=== PATIENT | male | born 1975 | race American Indian/Alaskan Native ===

== ENCOUNTER 2018-06-10 12:29 | Emergency (ER) | payer SELFPAY ==
[2018-06-10 13:16] LABS: Basophils % (Auto) 0.3 % (0.0-1.8); Eosinophils # (Auto) 0.1 K/mm3 (0.0-0.4); Eosinophils % (Auto) 0.6 % (0.0-4.3); Hemoglobin 14.2 gm/dl (11.8-15.2); Lymphocytes # (Auto) 1.1 K/mm3 (1.2-5.4); Lymphocytes % (Auto) 9.5 % (13.4-35.0); Mean Corpuscular HGB Conc 34 % (32-34); Mean Corpuscular Hemoglobin 30 pg (28-32); Mean Corpuscular Volume 88 fl (84-94); Monocytes # (Auto) 0.5 K/mm3 (0.0-0.8); Monocytes % (Auto) 4.2 % (0.0-7.3); Platelet Count 243 K/mm3 (140-440); Red Blood Count 4.79 M/mm3 (3.65-5.03); Red Cell Distribution Width 14.9 % (13.2-15.2)
--- NOTE | 2018-06-10 13:27 | Emergency Department Report ---
ED Psych HPI - General Chief Complaint: Psych Stated Complaint: MENTAL HEALTH/SUICIDAL Time Seen by Provider: 06/10/18 13:09 Source: patient Mode of arrival: Ambulatory - History of Present Illness Initial Comments: Patient is 42 years old male with history of hypertension and history of bipolar disorder. Patient presented to the ER requesting detoxification from crack cocaine. Patient friend who brought the patient stated that he spent the whole might smoking crack cocaine. Patient stated that he had thoughts of killing himself but he does not have a plan. When asked about auditory and visual hallucination patient stated that last time he had symptoms like that was one year ago. Patient denied any homicidal ideation. MD Complaint: suicidal ideation, feels depressed Associated Psychiatric Symptoms: suicidal ideation If Self Harm: admits thoughts of - Related Data Previous Rx's Medication Instructions Recorded Last Taken Type Permethrin 5% [Acticin 5% CREAM] 60 gm TP ONCE #1 tube 10/16/13 Unknown Rx Allergies Allergy/AdvReac Type Severity Reaction Status Date / Time No Known Allergies Allergy Verified 10/16/13 20:07 ED Review of Systems ROS: Stated complaint: MENTAL HEALTH/SUICIDAL Other details as noted in HPI Comment: All other systems reviewed and negative Constitutional: denies: chills, fever Respiratory: denies: cough, orthopnea, shortness of breath, SOB with exertion, SOB at rest, wheezing Cardiovascular: denies: chest pain, palpitations, dyspnea on exertion Gastrointestinal: denies: abdominal pain, nausea, vomiting Musculoskeletal: denies: back pain Neurological: denies: headache, weakness, numbness, paresthesias, confusion, abnormal gait Psychiatric: depression, suicidal thoughts ED Past Medical Hx - Past Medical History Hx Hypertension: Yes - Surgical History Past Surgical History?: No - Social History Smoking Status: Current Every Day Smoker Substance Use Type: Cocaine, Marijuana - Medications Home Medications: Home Medications Medication Instructions Recorded Confirmed Last Taken Type Permethrin 5% [Acticin 5% CREAM] 60 gm TP ONCE #1 tube 10/16/13 Unknown Rx ED Physical Exam - General Limitations: No Limitations General appearance: alert, in no apparent distress, other (depressed) - Head Head exam: Present: atraumatic - Eye Eye exam: Present: normal appearance, PERRL - ENT ENT exam: Present: normal exam, normal orophraynx, mucous membranes moist - Neck Neck exam: Present: normal inspection, full ROM. Absent: tenderness, meningismus, lymphadenopathy, thyromegaly - Respiratory Respiratory exam: Present: normal lung sounds bilaterally - Cardiovascular Cardiovascular Exam: Present: tachycardia, normal heart sounds - GI/Abdominal GI/Abdominal exam: Present: soft, normal bowel sounds. Absent: distended, tenderness, guarding, rebound, rigid, organomegaly, pulsatile mass, hernia - Extremities Exam Extremities exam: Present: normal inspection, full ROM, normal capillary refill. Absent: pedal edema, calf tenderness - Back Exam Back exam: Present: normal inspection, full ROM. Absent: tenderness, CVA tenderness (R), CVA tenderness (L), muscle spasm, paraspinal tenderness, vertebral tenderness - Neurological Exam Neurological exam: Present: alert, oriented X3, CN II-XII intact, normal gait, reflexes normal - Psychiatric Psychiatric exam: Present: depressed, suicidal ideation. Absent: agitated, anxious, flat affect, manic, homicidal ideation - Skin Skin exam: Present: warm, intact, normal color ED Course Vital Signs 06/10/18 12:42 Temperature 98.5 F Pulse Rate 133 H Respiratory 18 Rate Blood Pressure 122/82 O2 Sat by Pulse 98 Oximetry ED Medical Decision Making - Lab Data Result diagrams: 06/10/18 12:55 Critical care attestation.: If time is entered above; I have spent that time in minutes in the direct care of this critically ill patient, excluding procedure time. ED Disposition Clinical Impression: Substance abuse, Suicidal ideation Disposition: DC/TX-65 PSY HOSP/PSY UNIT Is pt being admited?: No Condition: Stable Referrals: PRIMARY CARE [Primary Care Provider] - 3-5 Days
[2018-06-10 13:34] LABS: BUN/Creatinine Ratio 8; Blood Urea Nitrogen 8 mg/dL (9-20); Calcium 9.3 mg/dL (8.4-10.2); Hemolysis Index 6
[2018-06-10 23:48] LABS: Bilirubin,Urine NEG (Negative); Blood,Urine NEG (Negative); Color,Urine Yellow (Yellow); Mucus,Urine FEW /HPF
[2018-06-10 23:51] LABS: Amphetamine Screen,Urine PRESUMPTIVE NEGATIVE; Benzodiazepines Screen,Urine PRESUMPTIVE NEGATIVE; Opiate Screen,Urine PRESUMPTIVE NEGATIVE
[2018-06-11 00:49] LABS: Cannabinoid Screen,Urine PRESUMPTIVE POSITIVE; Cocaine Screen,Urine PRESUMPTIVE POSITIVE; Methadone Screen,Urine PRESUMPTIVE POSITIVE
--- NOTE | 2018-06-11 18:33 | Consultation ---
History of Present Illness - Reason for Consult Consult date: 06/11/18 Reason for consult: psychiatric evaluation - Chief Complaint Chief complaint: "I want to go back to [place]." - History of Present Psychiatric Illness Mr. Bridgette Reza is a 42 years old AA male from [place] with history of hypertension and history of substance induced mood disorder vs. bipolar d/o. Patient presented to the ER requesting detoxification from crack cocaine. According to the ER record, a friend who brought the patient stated that he spent the whole might smoking crack cocaine. Patient stated that he had thoughts of killing himself but he does not have a plan. He denies suicidal ideation today. Patient denied any homicidal ideation. He denies psychotic symptoms. He is irritable and states he needs to leave. He says he has no one in [place]. His kicked him out. She has his younger 2 children, ages 6 and 9. He plans to return to [place] to stay with his mother. He received social security disability. He has a court date 07/05/2018 and is concerned about not making it to the court date. According to the record: [Pt reports first using cocaine in powder form at age 16. He began abusing crack cocaine via smoking at age 29 and has since been abusing $100 worth every other week with last use 06/10/18. Pt denies daily use. He denies current and hx of withdrawal sxs. Pt reports first smoking marijuana at age 14. He reports smoking about 7 grams worth everyday with last use being 06/09/18.] He reports the information is the same. He usually takes seroquel 800mg hs. He denies being diagnosed with bipolar. He states he has a therapist and psychiatric provider. Medications and Allergies Allergies Allergy/AdvReac Type Severity Reaction Status Date / Time No Known Allergies Allergy Verified 10/16/13 20:07 Home Medications Medication Instructions Recorded Confirmed Last Taken Type Permethrin 5% [Acticin 5% CREAM] 60 gm TP ONCE #1 tube 10/16/13 1 Day Ago Rx ~06/09/18 400 mg Amlodipine Besylate [Norvasc] 5 mg PO 06/10/18 Unknown History Quetiapine Fumarate [Seroquel] 400 mg PO QHS 06/10/18 06/10/18 06/09/18 10:00 History Past psychiatric history - past Psychiatric treatment and history Psych: Addictions psychiatric treatment history: uses cocaine - Social History Social history: other (no place to stay in [place]) Mental Status Exam - Vital signs Last Vital Signs Temp 98.5 F 06/11/18 13:05 Pulse 72 06/11/18 13:05 Resp 18 06/11/18 13:05 BP 121/83 06/11/18 13:05 Pulse Ox 98 06/11/18 13:05 - Exam Orientation: time, place, person Affect: agitated Mood: congruent with affect Thought content: other (no current SI/no HI) Thought Process: Intact Perceptions: none Speech: normal rate and pattern Concentration: focused Motor activity: normal Level of consciousness: alert Memory: Intact Sleep Symptoms: Difficulty Falling Asleep Interaction: cooperative Results Result Diagrams: 06/10/18 12:55 06/10/18 12:55 All other labs normal. Assessment and Plan Assessment and plan: Impression: suicidal ideation and requests cocaine detox- bipolar disorder, unspecified stimulant use d/o (cocaine), severe He reports his longest period of abstinence from drugs is 4 years and required seroquel during this time period. r/o substance induced mood disorder. Recommendations: Continue home med of Seroquel 400mg, 2 tab po hs for bipolar disorder Staff should allow him to call his mother. dispo: continue 1013 and transfer to inpatient psychiatric facility Staffed with Dr. Jaswant Degroot.
--- NOTE | 2018-06-12 12:57 | Progress Note ---
Subjective - Reason for Consult Consult date: 06/12/18 Reason for consult: Psychiatry Follow-up - Chief Complaint Chief complaint: "I need to get back to [place]" 42 years old AA male from [place] presenting to the ER SI's and wanting detox from cocaine. Today the patient is calm and cooperative during the assessment. He stated that that he need to get back to "[place]." He stated that his life has been in "shambles" since moving to [place]. He stated that substance abuse has been his down fall. He stated that he had not been taking Seroquel prior to coming to the ER. He stated that he was suicidal on during triage, but denies that now. He denies HI's and VH's. He stated that he may have been hearing voices yesterday. He denies any side effects of his medication. Mental Status Exam - Vital signs Last Vital Signs Temp 98.1 F 06/12/18 08:00 Pulse 77 06/12/18 08:00 Resp 19 06/12/18 08:00 BP 118/82 06/12/18 08:00 Pulse Ox 98 06/12/18 08:00 - Exam Narrative exam: MSE: Appearance: calm, cooperative Behavior: regular eye contact Speech: regular rate and tone Mood: "okay" Affect: flat Thought Process: circumstantial Thought Content: denies SI/HI's and AVH's Motor Activity: ambulatory Cognition: A/O x3 Insight: variable Judgment: variable Assessment and Plan Impression: Unspecified Mood DO. Substance Use DO (cocaine). Cannabis Use DO. Today the patient is calm and cooperative during the assessment. The patient was positive for Methadone. DDx: Bipolar DO, MDD, R/O Substance Use DO Recommendation/Plan: Continue 1013 and Seroquel 400 mg PO HS for mood. Discussed possible metabolic side effects of Seroquel with the patient. Dispo: The [facility] pending transport time. Will staff with Dr. Minda Degroot.
[2018-06-12] MEDS: NORVASC PO SCH (21:29)
--- NOTE | 2018-06-13 10:01 | Progress Note ---
Subjective - Reason for Consult Consult date: 06/13/18 Reason for consult: Psychiatry Follow-up - Chief Complaint Chief complaint: "I do need help" 42 years old AA male from [place] presenting to the ER SI's and wanting detox from cocaine. Today the patient is calm and cooperative during the assessment. He was informed that he will be transferred to [facility]. He stated, "I understand, I may need help." He stated that he need to get his life together. He denies SI/HI's and AVH's. He denies any side effects of his medication. Mental Status Exam - Vital signs Last Vital Signs Temp 98.6 F 06/13/18 02:52 Pulse 61 06/13/18 02:52 Resp 18 06/13/18 02:52 BP 112/92 06/13/18 02:52 Pulse Ox 97 06/13/18 02:52 - Exam Narrative exam: MSE: Appearance: calm, cooperative Behavior: regular eye contact Speech: regular rate and tone Mood: "okay" Affect: flat Thought Process: circumstantial Thought Content: denies SI/HI's and AVH's Motor Activity: ambulatory Cognition: A/O x3 Insight: variable Judgment: variable Assessment and Plan Impression: Unspecified Mood DO. Substance Use DO (cocaine). Cannabis Use DO. Today the patient is calm and cooperative during the assessment. The patient was positive for Methadone. DDx: Bipolar DO, MDD, R/O Substance Use DO Recommendation/Plan: Continue 1013 and Seroquel 400 mg PO HS for mood. Discussed possible metabolic side effects of Seroquel with the patient. Dispo: The patient was accepted at [facility] for outpatient psy services pending transport time. Will staff with Dr. Minda Degroot.
[2018-06-13] MEDS: NORVASC PO SCH (10:54)
[2018-06-13 22:51] VITALS: BP 132/87
== END 2018-06-13 21:55 | disposition other institution (70) ==
LOC: ED 12:29 → EEVIPCON 12:29 → ED 06-13 16:00
DX: F19.10 Other psychoactive substance abuse, uncomplicated (principal); I10 Essential (primary) hypertension; F31.9 Bipolar disorder, unspecified; F17.200 Nicotine dependence, unspecified, uncomplicated; F14.10 Cocaine abuse, uncomplicated
CPT/HCPCS: 36415; 80048; 80307; 81001; 85025; 99285; G0480; 80320

== ENCOUNTER 2022-01-27 08:12 | Emergency (ER) | payer MEDICARE ==
--- NOTE | 2022-01-27 09:38 | XRay Report ---
CHEST 2 VIEWS INDICATION: sob. COMPARISON: None. FINDINGS: Support devices: None. Heart: Within normal limits. Lungs/Pleura: No acute air space or interstitial disease. No significant pleural effusion. IMPRESSION: No acute findings. Signer Name: Brice Arnold MD Signed: 01/27/2022 9:34 AM Workstation Name: [id number]
[2022-01-27] MEDS ORDERED: SODIUM CHLORIDE 0.9% 1000 ML 1,000 ML IV ONE ×2 (10:47→12:30)
[2022-01-27] MEDS ORDERED: FAMOTIDINE 20 MG/2 ML INJ IV ONE (10:47)
[2022-01-27] MEDS ORDERED: DICYCLOMINE 20 MG/2 ML INJ IM ONE (10:47)
[2022-01-27] MEDS ORDERED: ONDANSETRON 4 MG/2 ML INJ IV ONE (10:47)
[2022-01-27 10:51] LABS: Alanine Aminotransferase 30 units/L (7-56); Albumin 5.1 g/dL (3.9-5); BUN/Creatinine Ratio 12; Blood Urea Nitrogen 23 mg/dL (9-20); Calcium 9.5 mg/dL (8.4-10.2); Hemolysis Index 3
[2022-01-27 11:06] LABS: Basophils # (Auto) 0.1 K/mm3 (0.0-0.1); Basophils % (Auto) 0.6 % (0.0-1.8); Eosinophils % (Auto) 0.4 % (0.0-4.3); Hematocrit 49.3 % (35.5-45.6); Hemoglobin 16.4 gm/dl (11.8-15.2); Lymphocytes # (Auto) 2.4 K/mm3 (1.2-5.4); Lymphocytes % (Auto) 25.6 % (13.4-35.0); Mean Corpuscular HGB Conc 33 % (32-34); Mean Corpuscular Volume 88 fl (84-94); Monocytes # (Auto) 0.8 K/mm3 (0.0-0.8); Monocytes % (Auto) 8.6 % (0.0-7.3); Red Blood Count 5.57 M/mm3 (3.65-5.03); Red Cell Distribution Width 14.3 % (13.2-15.2)
[2022-01-27] MEDS ORDERED: SUCRALFATE 1 GM TAB PO ONE (11:30)
--- NOTE | 2022-01-27 11:43 | XRay Report ---
CHEST 1 VIEW 01/27/2022 11:28 AM INDICATION / CLINICAL INFORMATION: CHEST PAIN. COMPARISON: 01/27/2022 FINDINGS: SUPPORT DEVICES: None. HEART / MEDIASTINUM: No significant abnormality. LUNGS / PLEURA: No significant pulmonary or pleural abnormality. No pneumothorax. ADDITIONAL FINDINGS: No significant additional findings. IMPRESSION: 1. No acute findings. Signer Name: Mil Lubin DO Signed: 01/27/2022 11:39 AM Workstation Name: [employer]
[2022-01-27 13:05] LABS: Platelet Count 322 K/mm3 (140-440)
[2022-01-27 13:29] LABS: INR 0.95 (0.87-1.13)
[2022-01-27 13:30] LABS: Partial Thromboplastin Time 33.8 Sec. (24.2-36.6)
--- NOTE | 2022-01-27 17:29 | Emergency Department Report ---
ED N/V/D HPI - General Chief complaint: Abdominal Pain Stated complaint: VOMITING/MOUTH BLEEDING Source: patient Mode of arrival: Ambulatory Limitations: No Limitations - History of Present Illness Initial comments: Patient is a 46-year-old -Chinese male with a history of hypertension, hyperlipidemia, GERD and polysubstance abuse who presents to the ED with complaint of acute onset persistent intractable nausea and vomiting and mild epigastric pain for the last 3 days, worse in the last 24 hours. Patient states that he has not been able to keep anything down because of persistent nausea and vomiting. Patient states that he ran out of his medications for GERD over 6 months ago and is currently not taking medication. Patient also states that he had some episodes of hematemesis with a nausea and vomiting 24 hours ago. Patient states that since then he has been feeling lightheaded with generalized weakness. Patient denies dizziness, syncope, chest pain or shortness of breath, fever, chills, diarrhea, dysuria, urinary frequency and urgency, hematuria, test icular pain, neck pain, headache or cough. MD complaint: nausea, vomiting, abdominal pain (mild epigastric pain), other (Left maxillary premolar and molar toothache) -: days(s) (3) Description of Vomiting: food contents, watery, bilious Associated Abdominal Pain: Yes (mild epigastric pain) Location: epigastric Radiation: none Severity: moderate Pain Scale: 4 Quality: aching, dull Consistency: intermittent Improves with: none Worsens with: eating, vomiting Context: possible food poisoning, other (GERD Complications) Associated Symptoms: denies other symptoms, nausea/vomiting. denies: myalgias, chest pain, cough, diaphoresis, fever/chills, headaches, loss of appetite, malaise, rash, dysuria, shortness of breath, syncope, weakness - Related Data Home Medications Medication Instructions Recorded Confirmed Last Taken Amlodipine Besylate [Norvasc] 5 mg PO DAILY 06/10/18 06/12/18 Unknown Quetiapine Fumarate [Seroquel] 400 mg PO QHS 06/10/18 06/10/18 06/09/18 10:00 Previous Rx's Medication Instructions Recorded Last Taken Type Permethrin 5% [Acticin 5% CREAM] 60 gm TP ONCE #1 tube 10/16/13 1 Day Ago Rx ~06/09/18 400 mg Clindamycin [Clindamycin CAP] 300 mg PO Q8H #30 cap 01/27/22 Unknown Rx Dicyclomine [Bentyl] 20 mg PO Q6H PRN #30 tablet 01/27/22 Unknown Rx Famotidine [Pepcid] 20 mg PO BID #60 tablet 01/27/22 Unknown Rx Omeprazole 40 mg PO DAILY #60 cap 01/27/22 Unknown Rx Promethazine [Phenergan] 25 mg PO Q6HR PRN #30 tab 01/27/22 Unknown Rx Allergies Allergy/AdvReac Type Severity Reaction Status Date / Time No Known Allergies Allergy Verified 10/16/13 20:07 ED Review of Systems ROS: Stated complaint: VOMITING/MOUTH BLEEDING Other details as noted in HPI Constitutional: denies: chills, fever Eyes: denies: eye pain, eye discharge, vision change ENT: dental pain (Left maxillary premolar and molar tooth ache with swollen gum). denies: ear pain, throat pain Respiratory: denies: cough, shortness of breath, wheezing Cardiovascular: denies: chest pain, palpitations Endocrine: no symptoms reported Gastrointestinal: abdominal pain (Mild epigastric pain), nausea, vomiting. den ies: diarrhea Genitourinary: denies: urgency, dysuria Musculoskeletal: denies: back pain, joint swelling, arthralgia Skin: denies: rash, lesions Neurological: denies: headache, weakness, paresthesias Psychiatric: denies: anxiety, depression Hematological/Lymphatic: denies: easy bleeding, easy bruising ED Past Medical Hx - Past Medical History Previous Medical History?: No Hx Hypertension: Yes Hx GERD: Yes Additional medical history: GERD; hyperlipidemia - Surgical History Past Surgical History?: No - Social History Smoking Status: Never Smoker - Medications Home Medications: Home Medications Medication Instructions Recorded Confirmed Last Taken Type Permethrin 5% [Acticin 5% CREAM] 60 gm TP ONCE #1 tube 10/16/13 06/12/18 1 Day Ago Rx ~06/09/18 400 mg Amlodipine Besylate [Norvasc] 5 mg PO DAILY 06/10/18 06/12/18 Unknown History Quetiapine Fumarate [Seroquel] 400 mg PO QHS 06/10/18 06/10/18 06/09/18 10:00 History Clindamycin [Clindamycin CAP] 300 mg PO Q8H #30 cap 01/27/22 Unknown Rx Dicyclomine [Bentyl] 20 mg PO Q6H PRN #30 tablet 01/27/22 Unknown Rx Famotidine [Pepcid] 20 mg PO BID #60 tablet 01/27/22 Unknown Rx Omeprazole 40 mg PO DAILY #60 cap 01/27/22 Unknown Rx Promethazine [Phenergan] 25 mg PO Q6HR PRN #30 tab 01/27/22 Unknown Rx ED Physical Exam - General Limitations: No Limitations General appearance: alert, in no apparent distress - Head Head exam: Present: atraumatic, normocephalic, normal inspection - Eye Eye exam: Present: normal appearance, PERRL, EOMI Pupils: Present: normal accommodation - ENT ENT exam: Present: mucous membranes moist, TM's normal bilaterally, normal exte rnal ear exam, other (Swollen, tender left maxillary gingiva with left maxillary premolar and molar teeth tenderness) - Neck Neck exam: Present: normal inspection, full ROM. Absent: tenderness - Respiratory Respiratory exam: Present: normal lung sounds bilaterally. Absent: respiratory distress, wheezes, rhonchi, stridor, chest wall tenderness, accessory muscle use, prolonged expiratory - Cardiovascular Cardiovascular Exam: Present: regular rate, normal rhythm, normal heart sounds. Absent: systolic murmur, diastolic murmur, rubs, gallop - GI/Abdominal GI/Abdominal exam: Present: soft, normal bowel sounds. Absent: tenderness, guarding, hyperactive bowel sounds, hypoactive bowel sounds - Extremities Exam Extremities exam: Present: normal inspection, full ROM, normal capillary refill. Absent: tenderness - Back Exam Back exam: Present: normal inspection, full ROM. Absent: tenderness, CVA tenderness (R), CVA tenderness (L), muscle spasm, paraspinal tenderness, vertebral tenderness - Neurological Exam Neurological exam: Present: alert, oriented X3, CN II-XII intact, normal gait, reflexes normal - Psychiatric Psychiatric exam: Present: normal affect, normal mood - Skin Skin exam: Present: warm, dry, intact, normal color. Absent: rash ED Course Vital Signs 01/27/22 08:25 Temperature 98.5 F Pulse Rate 69 Respiratory 19 Rate Blood Pressure 118/81 O2 Sat by Pulse 99 Oximetry ED Medical Decision Making - Lab Data Result diagrams: 01/27/22 09:11 01/27/22 09:11 - Radiology Data Radiology results: report reviewed, image reviewed [facility] [address] [place] [address] XRay Report Signed Patient: KUNAL SMITH MR#: [id number] : 1975 Acct:[id number] Age/Sex: 46 / M ADM Date: 01/27/22 Loc: ED Attending Dr: Ordering Physician: KAYLIN CHANCE Date of Service: 01/27/22 Procedure(s): XR chest 1V ap Accession Number(s): [id number] cc: KAYLIN CHANCE Fluoro Time In Minutes: CHEST 1 VIEW 01/27/2022 11:28 AM INDICATION / CLINICAL INFORMATION: CHEST PAIN. COMPARISON: 01/27/2022 FINDINGS: SUPPORT DEVICES: None. HEART / MEDIASTINUM: No significant abnormality. LUNGS / PLEURA: No significant pulmonary or pleural abnormality. No pneumothorax. ADDITIONAL FINDINGS: No significant additional findings. IMPRESSION: 1. No acute findings. Signer Name: Mil Hudson DO Signed: 01/27/2022 11:39 AM Workstation Name: [email or web address] Transcribed By: ALFONSO Dictated By: MIL HUDSON DO Electronically Authenticated By: MIL HUDSON DO Signed Date/Time: 01/27/221138 DD/ 38 TD/TT: - Medical Decision Making This is a 46-year-old -Chinese male with a history of hypertension, hyperlipidemia, GERD and polysubstance abuse who presents to the ED with com plaint of acute onset persistent intractable nausea and vomiting and mild epigastric pain for the last 3 days, worse in the last 24 hours. Patient states that he has not been able to keep anything down because of persistent nausea and vomiting. Patient states that he ran out of his medications for GERD over 6 months ago and is currently not taking medication. Patient also states that he had some episodes of hematemesis with a nausea and vomiting 24 hours ago. Patient states that since then he has been feeling lightheaded with generalized weakness. In the ED, patient is alert and oriented x3 and is not in any distress. Lab test results were reviewed and are all nonactionable except for BUN of 23 and creatinine of 1.9 which is new since 2018. Chest x-ray showed no acute cardiopulmonary abnormalities or pneumonitis. Patient received 2 L of normal saline IV bolus x1. Patient also received medications including antiemetics and antacids and antispasmodics. On reevaluation, patient felt better, nausea and vomiting resolved and patient passed oral fluids in the ED. patient's case with the ED attending physician Dr. Dubon who agreed with the plan of care to discharge patient home after receiving 2 L of normal saline IV bolus. Patient was discharged home on medications and advised to follow-up with his primary care physician in 7 to 10 days for reevaluation. Patient advised to return to the ED immediately if symptoms get worse. - Differential Diagnosis GERD; dehydration; gastritis; viral gastroenteritis; ACS Critical care attestation.: If time is entered above; I have spent that time in minutes in the direct care of this critically ill patient, excluding procedure time. ED Disposition Clinical Impression: Dehydration, Nausea and vomiting in adult patient, Polysubstance abuse, Dental abscess, Chronic gingivitis GERD (gastroesophageal reflux disease) Qualifiers: Esophagitis presence: esophagitis presence not specified Qualified Code(s): K21.9 - Gastro-esophageal reflux disease without esophagitis Disposition: 01 HOME / SELF CARE / HOMELESS Is pt being admited?: No Does the pt Need Aspirin: No Condition: Stable Instructions: Dehydration, Adult, [id number], Heartburn, [id number], Nausea and Vomiting, Adult, [id number], Gastroesophageal Reflux Disease, Adult, [id number], Substance Use Disorder and Mental Illness, Dental Abscess, [id number]-[id number] Additional Instructions: All lab test results were reviewed and are all nonactionable except for BUN which was 23 and creatinine which was 1.9, consistent with dehydration. Therefore take medications and drink plenty of fluids, drink plenty of fluids and follow-up with your primary care physician in 7 to 10 days for reevaluation. Return to the ED immediately if symptoms get worse. Prescriptions: Dicyclomine [Bentyl] 20 mg PO Q6H PRN #30 tablet PRN Reason: abdominal pain Clindamycin [Clindamycin CAP] 300 mg PO Q8H #30 cap Omeprazole 40 mg PO DAILY #60 cap Famotidine [Pepcid] 20 mg PO BID #60 tablet Promethazine [Phenergan] 25 mg PO Q6HR PRN #30 tab PRN Reason: Nausea Referrals: GEORGINA ALBERTS MD [Primary Care Provider] - 7-10 days Forms: Work/School Release Form(ED) Time of Disposition: 17:34 Print Language: NORTH KOREAN
[2022-01-27 18:26] VITALS: BP 148/92
--- NOTE | 2022-01-28 12:09 | Electrocardiograph Report ---
[facility] Test Date: 2022-01-27 Test Time: 08:35:19 Pat Name: KUNAL SMITH Department: Room: Gender: M [employer] Supervisor: [id number] : 1975 Requested By: ED DOC Order Number: [id number] Reading MD: Gabriel Pelletier Measurements Intervals [place] Rate: 68 P: 24 ME: 152 QRS: 53 QRSD: 87 T: 25 QT: 412 QTc: 439 Interpretive Statements Sinus rhythm No previous ECG available for comparison Electronically Signed On 01-28-2022 12:09:17 EDT by Gabriel Pelletier
== END 2022-01-27 18:24 | disposition home or self-care (01) ==
LOC: ED 08:12
DX: K21.9 Gastro-esophageal reflux disease without esophagitis (principal); K04.7 Periapical abscess without sinus; E86.0 Dehydration; R11.2 Nausea with vomiting, unspecified; F19.10 Other psychoactive substance abuse, uncomplicated; K05.10 Chronic gingivitis, plaque induced; I10 Essential (primary) hypertension; E78.5 Hyperlipidemia, unspecified
CPT/HCPCS: 36415; 71045; 71046; 80053; 83690; 83880; 84484; 85025; 85610; 85730; 93005; 96361; 96372; 96374; 96375; 99284; J0500; J2405; J3490; J7030